=== PATIENT | female | born 1935 | race Hispanic/Latino ===

== ENCOUNTER → 2019-09-18 | Outpatient (CLI) | payer OTHER, MEDICARE ==
[~2019-09-18] MED LIST: AEC81 PO; ALEN70TA10 PO; AMLO5TAB9 PO; ATOR40TA69 PO; CHOL50009 PO; CITA-107 PO; GABA-531 PO; INSU100V12 SQ; LISI40TA4 PO; METF-444 PO; METF-446 PO; METO-391 PO; MONT10TA26 PO; MULT-503 PO; NITR0.4T50 SL; OMEP20CA12 PO
== END | disposition home or self-care (01) ==
LOC: RAH 13:10
PROVIDERS: ATTEND Internal Medicine
DX: G31.9 Degenerative disease of nervous system, unspecified (principal); G93.9 Disorder of brain, unspecified; I65.23 Occlusion and stenosis of bilateral carotid arteries
CPT/HCPCS: 70450; 93880

== ENCOUNTER → 2019-09-23 | Outpatient (CLI) | payer OTHER, MEDICARE | END | disposition home or self-care (01) | LOC: RAH 08:39 | PROVIDERS: ATTEND Internal Medicine | DX: I08.8 Other rheumatic multiple valve diseases (principal); R47.81 Slurred speech | CPT/HCPCS: 93306; 93356 ==

== ENCOUNTER 2019-12-19 22:49 | Observation (INO) | payer OTHER, MEDICARE ==
[~2019-12-19] VITALS: Ht 160 cm; Wt 77.7 kg
[~2019-12-19 22:49] MED LIST changes: -ALEN70TA10 PO; +ALEN70TA69 PO; +AMLO-257 PO; -AMLO5TAB9 PO
[2019-12-19 23:32] LABS: APPEARANCE,URINE Clear (CLEAR); BASOPHILS % (AUTO) 0.2 % (0.0-5.0); BILIRUBIN,URINE Negative (NEGATIVE); COLOR,URINE Yellow (YELLOW); GLUCOSE, URINE (UA) Negative (NEGATIVE); KETONES,URINE Negative (NEGATIVE); LEUKOCYTE ESTERASE ,URINE Small (NEGATIVE); MEAN CORPUSCULAR HEMOGLOBIN 26.8 pg (27.0-33.0); MEAN CORPUSCULAR HGB CONC 33.1 g/dL (32.0-36.0); MEAN CORPUSCULAR VOLUME 80.8 fL (79-99); MONOCYTES % (AUTO) 5.2 % (3.0-13.0); NEUTROPHILS % (AUTO) 76.1 % (40.0-77.0); NITRATE,URINE Negative (NEGATIVE); OCCULT BLOOD,URINE Negative (NEGATIVE); PLATELET COUNT (AUTO) 127 K/uL (130-400); PROTEIN,URINE POS 1+ mg/dL (NEGATIVE); RED BLOOD CELL COUNT(AUTO) 3.96 MIL/uL (4.00-5.50); RED CELL DISTRIBUTION WIDTH 14.6 % (11.0-15.5)
[2019-12-19 23:45] LABS: CREATININE 1.5 mg/dL (0.5-1.5); POTASSIUM 4.3 mmol/L (3.5-5.1)
[2019-12-19 23:50] LABS: ALBUMIN 3.3 g/dL (3.5-5.0); BILIRUBIN,TOTAL 0.4 mg/dL (0.2-1.0); TOTAL PROTEIN, SERUM 7.5 g/dL (6.0-8.3)
[2019-12-19 23:55] LABS: RAPID GROUP A STREP NEGATIVE (NEGATIVE)
[2019-12-19 23:57] LABS: CREATINE KINASE, TOTAL 42 U/L (21-232); MYOGLOBIN 73 ng/mL (10-92); TROPONIN I < 0.04 ng/mL (0.00-0.06)
[2019-12-20 00:11] LABS: BACTERIA,URINE Rare /HPF (None Seen); RBC,URINE None Seen /HPF (0-1)
[2019-12-20 00:12] LABS: MUCUS,URINE Rare LPF (None Seen); SQUAMOUS EPITHELIAL CELL,UR Few /HPF (0-2)
[2019-12-20 00:27] LABS: PARTIAL THROMBOPLASTIN TIME 33.8 SEC (26.3-35.5); PROTHROMBIN TIME 10.8 SEC (9.6-11.6)
[2019-12-20] MEDS ORDERED: LEVOFLOXACIN 750 MG/D5W 150 ML 150 ML ONE (01:20)
[2019-12-20] MEDS ORDERED: CEFTRIAXONE SODIUM 1 GM ONE (01:21)
[2019-12-20] MEDS ORDERED: SODIUM CHLORIDE 0.9% 1000ML 1,000 ML IV ONE (01:21)
[2019-12-20 01:43] LABS: ABG BASE EXCESS 0.4 mmol/L (-2.0-3.0); ABG HCO3 24.4 mmol/L (21.0-28.0); ABG OXYGEN SATURATION 95.2 % (95.0-99.0); ABG PCO2 37 mmHg (32-45)
[2019-12-20] MEDS ORDERED: IOHEXOL-350 75 ML VIAL IV ONE (01:51)
[2019-12-20] MEDS ORDERED: AZITHROMYCIN 500MG+NS 250ML 250 ML IV SCH (04:00)
[2019-12-20] MEDS ORDERED: ONDANSETRON HCL 4 MG/2 ML VIAL IVP PRN (04:00)
[2019-12-20 04:03] VITALS: BP 151/75
--- NOTE | 2019-12-20 04:23 | NUR ---
pts scheduled zithromax was not given as pt is allergic to it, will notify [facility].
[2019-12-20] MEDS: LACTATED RINGERS 1000ML 1,000 ML IV SCH ×2 (05:20→16:42)
[2019-12-20] MEDS ORDERED: AMLO-258 PO (05:30)
[2019-12-20] MEDS ORDERED: FLUT1BLS3 NASAL (05:30)
[2019-12-20] MEDS ORDERED: FLUT16H NASAL (05:30)
[2019-12-20] MEDS ORDERED: ASPI-1443 PO (05:30)
[2019-12-20] MEDS ORDERED: METO-408 PO (05:30)
[2019-12-20] MEDS ORDERED: ROSU10TA28 PO (05:30)
[2019-12-20] MEDS ORDERED: OMEP40CA13 PO (05:30)
[2019-12-20] MEDS ORDERED: GABA-533 PO (05:30)
[2019-12-20] MEDS ORDERED: SERT100T12 PO (05:30)
[2019-12-20] MEDS ORDERED: BUSP7.5T7 PO (05:30)
[2019-12-20 07:30] VITALS: BP 133/59
[2019-12-20] MEDS: ACETAMINOPHEN 325 MG TAB PO PRN ×2 (08:12→08:18)
[2019-12-20 11:30] VITALS: BP 126/62
[2019-12-20 15:30] VITALS: BP 141/67
[2019-12-20] MEDS ORDERED: HYDRALAZINE HCL 20 MG/ML VIAL IV PRN (15:30)
[2019-12-20] MEDS ORDERED: ONDANSETRON HCL 4 MG/2 ML VIAL IV PRN (15:30)
[2019-12-20] MEDS ORDERED: NITROGLYCERIN 0.4 MG SL TAB SL PRN (15:30)
[2019-12-20] MEDS ORDERED: ACETAMINOPHEN-CODEINE 300/30MG TAB PO PRN (15:30)
[2019-12-20] MEDS ORDERED: DiphenhydrAMINE HCL 50 MG/ML VIAL IV PRN (15:30)
[2019-12-20] MEDS ORDERED: POTASSIUM CHLORIDE 10% ELIXIR 20 MEQ/15 ML UDCUP PO PRN (15:30)
[2019-12-20] MEDS ORDERED: ACETAMINOPHEN 325 MG TAB PO PRN ×2 (15:30)
[2019-12-20] MEDS ORDERED: GUAIFENESIN-DM 200/20 MG 10 ML PO PRN (15:30)
[2019-12-20] MEDS ORDERED: DIPHENHYDRAMINE HCL 25 MG CAPSULE PO PRN (15:30)
[2019-12-20] MEDS ORDERED: MORPHINE SULFATE 2 MG/ML 1ML SYG IV PRN (15:30)
[2019-12-20] MEDS ORDERED: POTASSIUM CHLORIDE 10MEQ/100ML 100 ML IV PRN (15:30)
[2019-12-20] MEDS ORDERED: LIDOCAINE HCL-MPF 1% 2ML VIAL IV PRN (15:30)
[2019-12-20] MEDS ORDERED: POTASSIUM CHLORIDE 20 MEQ ERTAB PO PRN (15:30)
[2019-12-20] MEDS ORDERED: MAGNESIUM 2GM PREMIX 50ML 50 ML IV PRN (15:30)
[2019-12-20] MEDS ORDERED: MAG HYDROX/AL HYDROX/SIMETH ES 30 ML SUSP UDCUP PO PRN (15:30)
[2019-12-20] MEDS ORDERED: LACTULOSE 20 GM/30 ML UDCUP PO PRN (15:30)
[2019-12-20] MEDS: INSULIN HUMULIN R 100 UNIT/ML 3ML SQ SCH ×2 (16:30→21:59)
--- NOTE | 2019-12-20 18:46 | NUR ---
CARDIOLOGY CONSULT TRIED CALLING DR. OATES'S OFFICE AT THIS TIME, NO ANSWER, NO ANSWERING SERVICE. PATIENT'S HEART RATE REMAINS CONTROLLED IN ATRIAL FIBRILLATION, NO URGENT NEED FOR HEALTH AND SAFETY CONSULTANT TO SEE PATIENT. WILL PASS ON THAT CONSULT IS PENDING.
[2019-12-20 20:00] VITALS: BP 153/99
--- NOTE | 2019-12-20 20:00 | NUR ---
ASSESSMENT PT RESTING QUIETLY IN ROOM WATCHING TV. CURRENTLY DENIES ANY PAIN OR DISCOMFORT. AAOX4 PLEASANT, COOPERATIVE AND FOLLOWS COMMANDS. DENIES ANY CHEST PAIN OR S.O.B. ASSESSMENT COMPLETED, SEE FLOW SHEET.
[2019-12-20] MEDS: ZOSYN 3.375GM+NS 50ML 50 ML IV SCH (21:41)
[2019-12-20] MEDS: ZOLPIDEM TARTRATE 5 MG TAB PO PRN (21:50)
[2019-12-20] MEDS ORDERED: VANCOMYCIN PROTOCOL PER PHARMACY IV SCH (23:45)
[2019-12-21] VITALS (7 sets, daily range): BP systolic 108–151; BP diastolic 42–77
[2019-12-21] MEDS ORDERED: VANCOMYCIN 1GM+NS 250ML 250 ML IV SCH ×2 (01:00→14:00)
[2019-12-21 05:51] LABS: BASOPHILS % (AUTO) 0.2 % (0.0-5.0); EOSINOPHILS % (AUTO) 0.2 % (0.0-8.0); HEMATOCRIT 28.9 % (36-48); LYMPHOCYTES % (AUTO) 28.7 % (21.0-51.0); MEAN CORPUSCULAR HEMOGLOBIN 26.6 pg (27.0-33.0); MEAN CORPUSCULAR HGB CONC 32.5 g/dL (32.0-36.0); MEAN CORPUSCULAR VOLUME 81.6 fL (79-99); MONOCYTES % (AUTO) 11.2 % (3.0-13.0); PLATELET COUNT (AUTO) 127 K/uL (130-400); RED BLOOD CELL COUNT(AUTO) 3.54 MIL/uL (4.00-5.50); RED CELL DISTRIBUTION WIDTH 14.7 % (11.0-15.5)
[2019-12-21 05:59] LABS: ALBUMIN 2.7 g/dL (3.5-5.0); BILIRUBIN,TOTAL 0.3 mg/dL (0.2-1.0); CREATININE 1.2 mg/dL (0.5-1.5); MAGNESIUM 2.1 mg/dL (1.80-2.40); POTASSIUM 5.1 mmol/L (3.5-5.1); TOTAL PROTEIN, SERUM 6.6 g/dL (6.0-8.3)
[2019-12-21] MEDS: INSULIN HUMULIN R 100 UNIT/ML 3ML SQ SCH ×4 (06:07→21:41)
[2019-12-21 06:15] LABS: B-TYPE NATRIURETIC PEPTIDE 163 pg/mL (0-100)
[2019-12-21] MEDS ORDERED: CEFTRIAXONE SODIUM 1 GM IVP SCH (09:00)
[2019-12-21] MEDS: ZOSYN 3.375GM+NS 50ML 50 ML IV SCH (09:39)
[2019-12-21] MEDS: ENOXAPARIN SODIUM 30 MG/0.3 ML SQ SCH (09:39)
[2019-12-21] MEDS ORDERED: ALBU8.5H8 IH (11:10)
[2019-12-21] MEDS ORDERED: LIRA0.6P2 SQ (11:19)
[2019-12-21] MEDS: AMLODIPINE BESYLATE 5 MG TAB PO SCH (11:41)
[2019-12-21] MEDS: LISINOPRIL 40 MG TABLET PO SCH (11:41)
[2019-12-21] MEDS: METOPROLOL SUCCINATE 50 MG TAB.SR.24H PO SCH (12:44)
--- NOTE | 2019-12-21 14:42 | NUR ---
TRANSFERRED TO RM [id number]. VS STABLE SBAR REPORT TO JOSE ROYAL
--- NOTE | 2019-12-21 15:53 | NUR ---
INITIAL SW met with patient. Patient lives alone. No Home health but does have [facility] with [facility] hours a week. DME: nebulizer, Bipap, rollator, glucometer (uses insulin). Patient needs help with ADL's but drives. PCP is Dr. Marissa Newman. [facility]acy [facility]. DCP is home. Addendum: 12/21/19 at 1555 by CALLUM VILLA SS Amended: Links added.
[2019-12-21] MEDS ORDERED: SULFAMETHOX-TMP DS 800/160 TAB PO SCH (21:00)
[2019-12-22] MEDS: ZOLPIDEM TARTRATE 5 MG TAB PO PRN (00:10)
[2019-12-22 01:30] VITALS: BP 154/78
[2019-12-22 04:43] LABS: CREATININE 1.1 mg/dL (0.5-1.5); MAGNESIUM 1.5 mg/dL (1.80-2.40)
[2019-12-22 04:45] LABS: BASOPHILS % (AUTO) 0.2 % (0.0-5.0); EOSINOPHILS % (AUTO) 0.6 % (0.0-8.0); HEMATOCRIT 28.1 % (36-48); LYMPHOCYTES % (AUTO) 32.5 % (21.0-51.0); MEAN CORPUSCULAR HEMOGLOBIN 27.2 pg (27.0-33.0); MEAN CORPUSCULAR HGB CONC 33.5 g/dL (32.0-36.0); MEAN CORPUSCULAR VOLUME 81.2 fL (79-99); MONOCYTES % (AUTO) 13.5 % (3.0-13.0); NEUTROPHILS % (AUTO) 52.4 % (40.0-77.0); PLATELET COUNT (AUTO) 173 K/uL (130-400); RED BLOOD CELL COUNT(AUTO) 3.46 MIL/uL (4.00-5.50); RED CELL DISTRIBUTION WIDTH 14.9 % (11.0-15.5); WHITE BLOOD COUNT (AUTO) 5.3 K/uL (4.8-10.8)
[2019-12-22 05:00] VITALS: BP 135/62
[2019-12-22] MEDS: INSULIN HUMULIN R 100 UNIT/ML 3ML SQ SCH (05:47)
[2019-12-22] MEDS: METOPROLOL SUCCINATE 50 MG TAB.SR.24H PO SCH (08:22)
[2019-12-22] MEDS: AMLODIPINE BESYLATE 5 MG TAB PO SCH (08:22)
[2019-12-22] MEDS: ENOXAPARIN SODIUM 30 MG/0.3 ML SQ SCH (08:23)
[2019-12-22] MEDS: LISINOPRIL 40 MG TABLET PO SCH (08:23)
[2019-12-22] MEDS ORDERED: MAGNESIUM 2GM PREMIX 50ML 50 ML IV SCH (08:30)
[2019-12-22 08:54] VITALS: BP 150/76
[2019-12-22] MEDS ORDERED: Sulfamethox-Tmp Ds 800/160 Tab PO (10:01)
[2019-12-22 12:00] VITALS: BP 139/66
--- NOTE | 2019-12-22 12:45 | NUR ---
note DISCHARGED HOME NOW. VERBALIZED UNDERSTANDING OF WHAT WAS INSTRUCTED. SPOKE TO HER GRANDDAUGHTER AND EXPLAINED DC ORDERS ALSO VERBALIZED UNDERSTANDING. RX FOR BACTRIM DS 1 PO BID FOR 7 DAYS CALLED IN TO [facility] IN [place] PER ELISE HRERMANN'S ORDERS.
== END 2019-12-22 13:00 | disposition home or self-care (01) ==
LOC: EDH 22:49 → EDHIP 12-20 01:15 → 2DH 12-20 02:40 → 4CH 12-21 14:47
PROVIDERS: ADMIT Internal Medicine Critical Care Medicine; ATTEND Internal Medicine Critical Care Medicine
DX: N39.0 Urinary tract infection, site not specified (principal); R19.7 Diarrhea, unspecified; E11.9 Type 2 diabetes mellitus without complications; L03.311 Cellulitis of abdominal wall; I10 Essential (primary) hypertension; J42 Unspecified chronic bronchitis; Z20.828 Contact with and (suspected) exposure to other viral communicable diseases; Z79.4 Long term (current) use of insulin; Z79.82 Long term (current) use of aspirin; Z88.5 Allergy status to narcotic agent; Z88.1 Allergy status to other antibiotic agents; Z88.6 Allergy status to analgesic agent; Z88.8 Allergy status to other drugs, medicaments and biological substances
CPT/HCPCS: 36415 ×3; 36600; 71045 ×2; 71275; 74176; 80048; 80053 ×2; 81001; 82550; 82803; 82948 ×8; 83605; 83735 ×2; 83874; 83880; 84145; 84484; 85025 ×3; 85378; 85610; 85730; 87040; 87088 ×2; 87486; 87581; 87633 ×2; 87635 ×2; 87798; 87804 ×2; 87880; 96361 ×2; 96365; 96366 ×3; 96367 ×2; 96372 ×3; 96375 ×2; 99285; G0378 ×24; J0696 ×2; J1650 ×2; J1815 ×2; J1956; J2405; J2543 ×3; J3370 ×2; J3475; J7030; J7120 ×2; Q9967; 93005

== ENCOUNTER 2020-08-28 12:04 | Emergency (ER) | payer OTHER, MEDICARE ==
[~2020-08-28 12:04] MED LIST changes: -AEC81 PO; +ALBU8.5H8 IH; -ALEN70TA69 PO; +ALEN70TA80 PO; -AMLO-257 PO; +AMLO-258 PO; +ASPI-1443 PO; -ATOR40TA69 PO; +BUSP7.5T7 PO; -CHOL50009 PO; -CITA-107 PO; +FLUT16H NASAL; +FLUT1BLS3 NASAL; -GABA-531 PO; +LIRA0.6P2 SQ; -LISI40TA4 PO; +LISI40TA9 PO; -METF-444 PO; -METF-446 PO; -METO-391 PO; +METO-408 PO; -MONT10TA26 PO; -MULT-503 PO; -OMEP20CA12 PO; +OMEP40CA13 PO; +ROSU10TA28 PO; +SERT-440 PO; +Sulfamethox-Tmp Ds 800/160 Tab PO
[2020-08-28] MEDS ORDERED: ONDANSETRON HCL 4 MG/2 ML VIAL ONE (13:26)
[2020-08-28] MEDS ORDERED: MORPHINE SULFATE 2 MG/ML 1ML SYG ONE (13:26)
[2020-08-28] MEDS ORDERED: KETOROLAC TROMETHAMINE 15MG/ML ONE (13:26)
== END 2020-08-28 14:55 | disposition home or self-care (01) ==
LOC: EDH 12:04
DX: S42.292A Other displaced fracture of upper end of left humerus, initial encounter for closed fracture (principal); S00.83XA Contusion of other part of head, initial encounter; I10 Essential (primary) hypertension; E11.9 Type 2 diabetes mellitus without complications; Z88.1 Allergy status to other antibiotic agents; Z88.8 Allergy status to other drugs, medicaments and biological substances; Z88.6 Allergy status to analgesic agent; Z79.899 Other long term (current) drug therapy; W01.0XXA Fall on same level from slipping, tripping and stumbling without subsequent striking against object, initial encounter; Y93.89 Activity, other specified; Y92.89 Other specified places as the place of occurrence of the external cause; Y99.8 Other external cause status
CPT/HCPCS: 29105; 70450; 70486; 72125; 73030; 73060; 93005; 96374; 96375 ×2; 99285; J1885; J2405

== ENCOUNTER 2020-10-12 03:57 | Inpatient (IN) | payer OTHER, MEDICARE ==
[~2020-10-12] VITALS: Ht 160 cm; Wt 79.7 kg
[~2020-10-12 03:57] MED LIST changes: -OMEP40CA13 PO; +OMEP40CA21 PO
[2020-10-12] MEDS ORDERED: HYDROCODONE/ACETAMINOPHEN 10/325 MG TAB ONE (04:26)
[2020-10-12 07:03] LABS: BASOPHILS % (AUTO) 0.4 % (0.0-5.0); EOSINOPHILS % (AUTO) 1.8 % (0.0-8.0); HEMATOCRIT 34.3 % (36-48); LYMPHOCYTES % (AUTO) 20.7 % (21.0-51.0); MEAN CORPUSCULAR HEMOGLOBIN 27.4 pg (27.0-33.0); MEAN CORPUSCULAR HGB CONC 33.2 g/dL (32.0-36.0); MEAN CORPUSCULAR VOLUME 82.5 fL (79-99); NEUTROPHILS % (AUTO) 70.7 % (40.0-77.0); PLATELET COUNT (AUTO) 168 K/uL (130-400); RED BLOOD CELL COUNT(AUTO) 4.16 MIL/uL (4.00-5.50); RED CELL DISTRIBUTION WIDTH 13.8 % (11.0-15.5); WHITE BLOOD COUNT (AUTO) 6.7 K/uL (4.8-10.8)
[2020-10-12 07:20] LABS: ALBUMIN 4.1 g/dL (3.5-5.0); BILIRUBIN,TOTAL 0.3 mg/dL (0.2-1.0); CREATININE 1.1 mg/dL (0.5-1.5); POTASSIUM 4.5 mmol/L (3.5-5.1); TOTAL PROTEIN, SERUM 7.7 g/dL (6.0-8.3)
[2020-10-12 07:39] LABS: INR 1.01 (0.85-1.15)
[2020-10-12 07:41] LABS: PARTIAL THROMBOPLASTIN TIME 23.5 SEC (26.3-35.5)
[2020-10-12] MEDS ORDERED: MORPHINE 2 MG SYG IVP PRN (08:00)
[2020-10-12] MEDS ORDERED: LACTATED RINGERS 1000ML 1,000 ML IV SCH (08:00)
[2020-10-12] MEDS: PANTOPRAZOLE 40 MG TAB DR PO SCH (08:21)
[2020-10-12 08:34] LABS: HEMOGLOBIN A1C 7.4 % (4.0-6.0)
[2020-10-12 08:43] LABS: BILIRUBIN,DIRECT 0.1 mg/dL (0.0-0.3); MAGNESIUM 1.4 mg/dL (1.80-2.40)
[2020-10-12] MEDS: AMLODIPINE 5 MG TAB PO SCH (09:00)
[2020-10-12] MEDS: METOPROLOL SUCCINATE 50 MG TAB.SR.24H PO SCH (09:00)
[2020-10-12 09:12] LABS: APPEARANCE,URINE Clear (CLEAR); BILIRUBIN,URINE Negative (NEGATIVE); COLOR,URINE Yellow (YELLOW); GLUCOSE, URINE (UA) Negative (NEGATIVE); KETONES,URINE Negative (NEGATIVE); LEUKOCYTE ESTERASE ,URINE Trace (NEGATIVE); NITRATE,URINE Negative (NEGATIVE); OCCULT BLOOD,URINE Negative (NEGATIVE); PROTEIN,URINE Trace mg/dL (NEGATIVE); UROBILINOGEN,URINE 0.2 mg/dL (0.2-1.0)
[2020-10-12 09:13] LABS: BACTERIA,URINE Rare /HPF (None Seen); RBC,URINE 0-1 /HPF (0-1); SQUAMOUS EPITHELIAL CELL,UR Rare /HPF (0-2); WBC,URINE 0-1 /HPF (0-1)
[2020-10-12] MEDS ORDERED: AMLODIPINE 5 MG TAB ONE (09:39)
[2020-10-12] MEDS ORDERED: PANTOPRAZOLE 40 MG TAB DR ONE (09:39)
[2020-10-12] MEDS ORDERED: MAGNESIUM 2GM PREMIX 50ML 50 ML IV ONE (09:39)
[2020-10-12] MEDS ORDERED: LACTATED RINGERS 1000ML 1,000 ML IV ONE (09:40)
[2020-10-12] MEDS ORDERED: METOPROLOL SUCCINATE 50 MG TAB.SR.24H PO ONE (09:40)
[2020-10-12] MEDS ORDERED: MORPHINE 2 MG SYG ONE (09:40)
[2020-10-12 12:07] VITALS: BP 162/81
[2020-10-12] MEDS: MAGNESIUM 2GM PREMIX 50ML 50 ML IV SCH (15:04)
[2020-10-12 16:55] VITALS: BP 120/72
[2020-10-12] MEDS ORDERED: LISINOPRIL 20 MG TABLET PO SCH (21:00)
[2020-10-12] MEDS: HYDROCODONE/ACETAMINOPHEN 5/325 MG TAB PO PRN (22:41)
[2020-10-12] MEDS: INSULIN HUMULIN R 100 UNIT/ML 3ML SQ SCH (22:51)
[2020-10-12 23:34] VITALS: BP 152/78
[2020-10-13] VITALS (26 sets, daily range): BP systolic 131–186; BP diastolic 47–85
[2020-10-13] MEDS: INSULIN HUMULIN R 100 UNIT/ML 3ML SQ SCH ×4 (02:00→20:07)
[2020-10-13] MEDS ORDERED: BUSP10TA3 PO (04:38)
[2020-10-13] MEDS ORDERED: MONT-39 PO (04:39)
[2020-10-13] MEDS ORDERED: LORA10TA7 PO (04:43)
[2020-10-13] MEDS ORDERED: NAPR-1192 PO (04:47)
[2020-10-13] MEDS ORDERED: TRAZ-253 PO (04:47)
[2020-10-13 06:13] LABS: BASOPHILS % (AUTO) 0.3 % (0.0-5.0); EOSINOPHILS % (AUTO) 2.2 % (0.0-8.0); LYMPHOCYTES % (AUTO) 24.6 % (21.0-51.0); MEAN CORPUSCULAR HEMOGLOBIN 27.5 pg (27.0-33.0); MEAN CORPUSCULAR HGB CONC 33.2 g/dL (32.0-36.0); MEAN CORPUSCULAR VOLUME 82.9 fL (79-99); MONOCYTES % (AUTO) 6.9 % (3.0-13.0); NEUTROPHILS % (AUTO) 65.5 % (40.0-77.0); PLATELET COUNT (AUTO) 162 K/uL (130-400); RED BLOOD CELL COUNT(AUTO) 3.74 MIL/uL (4.00-5.50); RED CELL DISTRIBUTION WIDTH 13.7 % (11.0-15.5); WHITE BLOOD COUNT (AUTO) 5.9 K/uL (4.8-10.8)
[2020-10-13 06:15] LABS: MAGNESIUM 1.6 mg/dL (1.80-2.40); POTASSIUM 4.3 mmol/L (3.5-5.1)
[2020-10-13] MEDS: PANTOPRAZOLE 40 MG TAB DR PO SCH (07:30)
[2020-10-13] MEDS: METOPROLOL SUCCINATE 50 MG TAB.SR.24H PO SCH (08:36)
[2020-10-13] MEDS: MAGNESIUM 2GM PREMIX 50ML 50 ML IV SCH (08:36)
[2020-10-13] MEDS: AMLODIPINE 5 MG TAB PO SCH (09:00)
[2020-10-13] MEDS ORDERED: 0.9%NACL 1000ML 1,000 ML IV ONE (12:05)
[2020-10-13] MEDS ORDERED: SUCCINYLCHOLINE CHLORIDE 20 MG/ML 10 ML VIAL ONE (13:18)
[2020-10-13] MEDS ORDERED: LIDOCAINE PF 100MG/5ML (2%) SYRINGE 5ML ONE (13:18)
[2020-10-13] MEDS ORDERED: PROPOFOL 10 MG/ML 20ML VIAL IV ONE (13:18)
[2020-10-13] MEDS ORDERED: MIDAZOLAM HCL 1 MG/ML 2ML VIAL ONE (13:19)
[2020-10-13] MEDS ORDERED: ONDANSETRON 4MG INJ ONE ×2 (13:19→21:53)
[2020-10-13] MEDS ORDERED: GLYCOPYRROLATE 1 MG/5 ML SYRINGE ONE (13:19)
[2020-10-13] MEDS ORDERED: ROCURONIUM 10MG/1ML SYR 10 MG/ML ML ONE (13:19)
[2020-10-13] MEDS ORDERED: NEOSTIGMINE 5MG/5ML SYR IV ONE (13:19)
[2020-10-13] MEDS ORDERED: DEXAMETHASONE SOD PHOSPHATE 10MG/ML 1ML VIAL ONE (13:19)
[2020-10-13] MEDS ORDERED: FENTANYL CITRATE PF 50 MCG/1 ML 2ML VIAL ONE (13:20)
[2020-10-13] MEDS ORDERED: ROPIVACAINE 0.5% 5MG/ML 30ML IJ ONE ×2 (13:24→18:23)
[2020-10-13] MEDS ORDERED: ALBUMIN (HUMAN) 5% 250 ML IV ONE (13:24)
[2020-10-13] MEDS ORDERED: VANCOMYCIN 1G/250ML KIT 250 ML IV ONE (15:51)
[2020-10-13] MEDS ORDERED: EPHEDRINE SULFATE 50 MG/ML AMPULE ONE ×2 (16:25→17:01)
[2020-10-13] MEDS ORDERED: HYDRALAZINE 20MG/ML VIAL ONE (19:14)
[2020-10-13] MEDS ORDERED: NITROGLYCERIN 0.4 MG SL TAB SL PRN (21:30)
[2020-10-13] MEDS ORDERED: ALBUTEROL INHALER 90MCG/INH IH PRN (21:30)
[2020-10-13] MEDS ORDERED: NAPROXEN 250 MG TAB PO PRN (21:30)
[2020-10-13] MEDS: LACTATED RINGERS 1000ML 1,000 ML IV SCH (21:45)
[2020-10-13] MEDS ORDERED: TRAZODONE HCL 50 MG TAB ONE (21:46)
[2020-10-13] MEDS ORDERED: BUSPIRONE HCL 5 MG TABLET PO ONE (21:46)
[2020-10-13] MEDS ORDERED: MONTELUKAST SODIUM 10 MG TAB ONE (21:46)
[2020-10-13] MEDS ORDERED: LABETALOL 20MG VIAL IV ONE (21:53)
[2020-10-13] MEDS ORDERED: ONDANSETRON 4MG INJ IVP PRN (22:00)
[2020-10-13] MEDS ORDERED: LABETALOL 20MG SYG IV PRN (22:00)
[2020-10-14] VITALS: BP_SYST 131; BP_SYST 156; BP_DIAS 63; BP_DIAS 65
[2020-10-14] MEDS: HYDROCODONE/ACETAMINOPHEN 5/325 MG TAB PO PRN ×2 (00:13→08:41)
[2020-10-14] MEDS: INSULIN HUMULIN R 100 UNIT/ML 3ML SQ SCH ×4 (02:11→20:00)
[2020-10-14 04:00] VITALS: BP 147/61
[2020-10-14 05:13] LABS: BASOPHILS % (AUTO) 0.2 % (0.0-5.0); EOSINOPHILS % (AUTO) 0.1 % (0.0-8.0); HEMATOCRIT 28.6 % (36-48); LYMPHOCYTES % (AUTO) 10.6 % (21.0-51.0); MEAN CORPUSCULAR HEMOGLOBIN 27.8 pg (27.0-33.0); MEAN CORPUSCULAR HGB CONC 33.2 g/dL (32.0-36.0); MEAN CORPUSCULAR VOLUME 83.6 fL (79-99); MONOCYTES % (AUTO) 6.5 % (3.0-13.0); NEUTROPHILS % (AUTO) 82.3 % (40.0-77.0); PLATELET COUNT (AUTO) 154 K/uL (130-400); RED BLOOD CELL COUNT(AUTO) 3.42 MIL/uL (4.00-5.50); RED CELL DISTRIBUTION WIDTH 13.8 % (11.0-15.5); WHITE BLOOD COUNT (AUTO) 8.9 K/uL (4.8-10.8)
[2020-10-14 05:19] LABS: CREATININE 1.1 mg/dL (0.5-1.5); MAGNESIUM 1.8 mg/dL (1.80-2.40); POTASSIUM 4.3 mmol/L (3.5-5.1)
[2020-10-14] MEDS: PANTOPRAZOLE 40 MG TAB DR PO SCH (05:41)
[2020-10-14] MEDS: MAGNESIUM 2GM PREMIX 50ML 50 ML IV SCH (05:42)
[2020-10-14 08:27] VITALS: BP 111/52
[2020-10-14] MEDS: ASPIRIN 81 MG EC TAB PO SCH (08:41)
[2020-10-14] MEDS: BUSPIRONE HCL 5 MG TABLET PO SCH ×2 (08:42→20:46)
[2020-10-14] MEDS: SERTRALINE HCL 50 MG TABLET PO SCH (08:42)
[2020-10-14] MEDS: METOPROLOL SUCCINATE 50 MG TAB.SR.24H PO SCH (08:43)
[2020-10-14] MEDS: VICTOZA 0.6 MG SQ SCH (08:43)
[2020-10-14] MEDS: FLUTICASONE PROPIONATE 50MCG/SPRAY 16 GM BOTTLE NS SCH ×2 (08:44→20:47)
[2020-10-14] MEDS: **HM** TRELEGY ELLIPTA NASAL SCH ×2 (08:44→20:47)
[2020-10-14] MEDS: INSULIN GLARGINE 100 UNITS/ML 10 ML VIAL SQ SCH ×2 (08:45→20:48)
[2020-10-14] MEDS ORDERED: NON-FORMULARY MEDICATION 1 EACH (Omeprazole 40 MG) PO SCH (09:00)
[2020-10-14] MEDS ORDERED: NON-FORMULARY MEDICATION 1 EACH (Amlodipine Besylate 10 MG) PO SCH (09:00)
[2020-10-14] MEDS: LISINOPRIL 40 MG TABLET PO SCH (09:00)
[2020-10-14] MEDS: AMLODIPINE 5 MG TAB PO SCH (09:00)
[2020-10-14] MEDS ORDERED: NON-FORMULARY MEDICATION 1 EACH (Metoprolol Succinate 25 MG) PO SCH (09:00)
[2020-10-14] MEDS: LACTATED RINGERS 1000ML 1,000 ML IV SCH (13:09)
[2020-10-14 13:21] VITALS: BP 126/71
[2020-10-14] MEDS: KETOROLAC 15MG/ML VIAL (15MG/ML) IV PRN ×2 (13:27→20:46)
[2020-10-14 17:07] VITALS: BP_SYST 122; BP_SYST 130; BP_DIAS 36; BP_DIAS 76
[2020-10-14] MEDS ORDERED: MONTELUKAST SODIUM 10 MG TAB ONE (18:49)
[2020-10-14] MEDS ORDERED: ATORVASTATIN 20 MG TABLET ONE (18:49)
[2020-10-14 20:00] VITALS: BP 155/56
[2020-10-14] MEDS ORDERED: MONTELUKAST SODIUM 10 MG TAB PO SCH (21:00)
[2020-10-14] MEDS ORDERED: ATORVASTATIN 20 MG TABLET PO SCH (21:00)
[2020-10-15 00:43] VITALS: BP 155/57
[2020-10-15] MEDS: INSULIN HUMULIN R 100 UNIT/ML 3ML SQ SCH ×3 (02:00→14:00)
[2020-10-15] MEDS: HYDROCODONE/ACETAMINOPHEN 5/325 MG TAB PO PRN (02:26)
[2020-10-15 04:22] VITALS: BP 153/63
[2020-10-15] MEDS: KETOROLAC 15MG/ML VIAL (15MG/ML) IV PRN ×2 (04:45→10:39)
[2020-10-15 05:12] LABS: BASOPHILS % (AUTO) 0.2 % (0.0-5.0); EOSINOPHILS % (AUTO) 2.3 % (0.0-8.0); HEMATOCRIT 32.2 % (36-48); LYMPHOCYTES % (AUTO) 12.3 % (21.0-51.0); MEAN CORPUSCULAR HEMOGLOBIN 27.2 pg (27.0-33.0); MEAN CORPUSCULAR HGB CONC 32.3 g/dL (32.0-36.0); MEAN CORPUSCULAR VOLUME 84.1 fL (79-99); MONOCYTES % (AUTO) 8.1 % (3.0-13.0); NEUTROPHILS % (AUTO) 76.7 % (40.0-77.0); PLATELET COUNT (AUTO) 173 K/uL (130-400); RED BLOOD CELL COUNT(AUTO) 3.83 MIL/uL (4.00-5.50); RED CELL DISTRIBUTION WIDTH 13.8 % (11.0-15.5); WHITE BLOOD COUNT (AUTO) 9.4 K/uL (4.8-10.8)
[2020-10-15 05:28] LABS: CREATININE 1.1 mg/dL (0.5-1.5); MAGNESIUM 1.9 mg/dL (1.80-2.40); POTASSIUM 3.9 mmol/L (3.5-5.1)
[2020-10-15] MEDS: PANTOPRAZOLE 40 MG TAB DR PO SCH (05:59)
[2020-10-15 07:21] VITALS: BP 151/61
[2020-10-15] MEDS ORDERED: LUBIPROSTONE 24 MCG CAP PO SCH (08:00)
[2020-10-15] MEDS: **HM** TRELEGY ELLIPTA NASAL SCH (09:00)
[2020-10-15] MEDS: VICTOZA 0.6 MG SQ SCH (09:00)
[2020-10-15] MEDS ORDERED: METOPROLOL SUCCINATE 50 MG TAB.SR.24H PO SCH (09:00)
[2020-10-15] MEDS: ASPIRIN 81 MG EC TAB PO SCH (10:42)
[2020-10-15] MEDS: SERTRALINE HCL 50 MG TABLET PO SCH (10:42)
[2020-10-15] MEDS: AMLODIPINE 5 MG TAB PO SCH (10:43)
[2020-10-15] MEDS: BUSPIRONE HCL 5 MG TABLET PO SCH (10:43)
[2020-10-15] MEDS: LISINOPRIL 40 MG TABLET PO SCH (10:43)
[2020-10-15 11:19] VITALS: BP 168/76
[2020-10-15] MEDS: INSULIN GLARGINE 100 UNITS/ML 10 ML VIAL SQ SCH (12:07)
[2020-10-15] MEDS ORDERED: TRAZ-185 PO (12:37)
[2020-10-15 16:00] VITALS: BP 148/57
[2020-10-15] MEDS ORDERED: TRAZODONE HCL 50 MG TAB PO SCH (21:00)
[2020-10-20] MEDS ORDERED: ALENDRONATE SODIUM 35 MG TAB PO SCH (09:00)
== END 2020-10-15 17:20 | DRG 494 ==
LOC: EDH 03:57 → EDHIP 08:00 → OBSVTOIN 08:00 → 3BH 12:01
PROVIDERS: ADMIT Internal Medicine; ATTEND Internal Medicine
PROC: 0PSG04Z Reposition Left Humeral Shaft with Internal Fixation Device, Open Approach (ICD-10-PCS; principal; 2020-10-13 16:00)
PROC: 0LB20ZZ Excision of Left Shoulder Tendon, Open Approach (ICD-10-PCS; 2020-10-13 16:00)
DX: S42.202A Unspecified fracture of upper end of left humerus, initial encounter for closed fracture (principal); F41.9 Anxiety disorder, unspecified; J45.909 Unspecified asthma, uncomplicated; E11.9 Type 2 diabetes mellitus without complications; M19.90 Unspecified osteoarthritis, unspecified site; Z20.822 Contact with and (suspected) exposure to COVID-19; E78.5 Hyperlipidemia, unspecified; F32.9 Major depressive disorder, single episode, unspecified; G47.33 Obstructive sleep apnea (adult) (pediatric); W18.30XA Fall on same level, unspecified, initial encounter; Y93.89 Activity, other specified; K21.9 Gastro-esophageal reflux disease without esophagitis; Y92.89 Other specified places as the place of occurrence of the external cause; Y99.8 Other external cause status; Z90.710 Acquired absence of both cervix and uterus; Z88.0 Allergy status to penicillin; Z88.5 Allergy status to narcotic agent; Z88.8 Allergy status to other drugs, medicaments and biological substances; Z80.3 Family history of malignant neoplasm of breast; Z83.3 Family history of diabetes mellitus; Z82.49 Family history of ischemic heart disease and other diseases of the circulatory system; I51.7 Cardiomegaly; E66.9 Obesity, unspecified; Z68.31 Body mass index [BMI] 31.0-31.9, adult; I10 Essential (primary) hypertension; S46.012A Strain of muscle(s) and tendon(s) of the rotator cuff of left shoulder, initial encounter
CPT/HCPCS: 36415; 71045; 73030; 73060; 73090; 73200; 80048; 80053; 81001; 82248; 82948; 83036; 83735; 83880; 84484; 85025; 85610; 85730; 87426; 93005; 97039; A4606; G0378; J0330; J0360; J1100; J1815; J1885; J2001; J2250; J2405; J2704; J2710; J2795; J3010; J3370; J3475; J3490; J7030; J7120; P9045; U0003

== ENCOUNTER 2021-05-16 17:11 | Inpatient (IN) | payer OTHER, MEDICARE ==
[~2021-05-16] VITALS: Ht 160 cm; Wt 79.3 kg
[~2021-05-16 17:11] MED LIST changes: +BUSP10TA3 PO; -BUSP7.5T7 PO; +LORA10TA7 PO; +MONT-39 PO; +NAPR-1192 PO; -Sulfamethox-Tmp Ds 800/160 Tab PO; +TRAZ-185 PO
[2021-05-16] MEDS ORDERED: GLUCAGON 1MG KIT 1 MG ML IM PRN (18:30)
[2021-05-16] MEDS ORDERED: POTASSIUM CHLORIDE 10% ELIXIR 20 MEQ/15 ML UDCUP PO PRN (18:30)
[2021-05-16] MEDS ORDERED: KCL 20 MEQ ERTAB PO PRN (18:30)
[2021-05-16] MEDS ORDERED: ALBUTEROL 0.083% 2.5 MG/3 ML INH IH PRN (18:30)
[2021-05-16] MEDS ORDERED: DEXTROSE 50%-WATER 50 ML DISP.SYRIN IV PRN (18:30)
[2021-05-16] MEDS ORDERED: LIDOCAINE HCL-MPF 1% 2ML VIAL IJ PRN (18:30)
[2021-05-16] MEDS ORDERED: 0.9%NACL 10ML VIAL IVP PRN (18:30)
[2021-05-16] MEDS ORDERED: POTASSIUM CHLORIDE 20MEQ/100ML 100 ML IV PRN (18:30)
[2021-05-16] MEDS: NITROGLYCERIN 1GM OINT 1 INCH/1GM TD SCH (18:31)
[2021-05-16] MEDS: FUROSEMIDE 40MG VIAL IVP SCH (18:31)
[2021-05-16 18:38] LABS: BASOPHILS % (AUTO) 0.5 % (0.0-5.0); EOSINOPHILS % (AUTO) 1.7 % (0.0-8.0); LYMPHOCYTES % (AUTO) 23.7 % (21.0-51.0); MEAN CORPUSCULAR HEMOGLOBIN 29.3 pg (27.0-33.0); MEAN CORPUSCULAR HGB CONC 34.4 g/dL (32.0-36.0); MEAN CORPUSCULAR VOLUME 85.2 fL (79-99); MONOCYTES % (AUTO) 7.3 % (3.0-13.0); NEUTROPHILS % (AUTO) 66.1 % (40.0-77.0); PLATELET COUNT (AUTO) 185 K/uL (130-400); RED BLOOD CELL COUNT(AUTO) 3.99 MIL/uL (4.00-5.50); RED CELL DISTRIBUTION WIDTH 13.3 % (11.0-15.5)
[2021-05-16 18:45] LABS: CREATININE 1.3 mg/dL (0.5-1.5)
[2021-05-16 18:50] LABS: BILIRUBIN,TOTAL 0.4 mg/dL (0.2-1.0); TOTAL PROTEIN, SERUM 7.9 g/dL (6.0-8.3)
[2021-05-16 18:56] LABS: B-TYPE NATRIURETIC PEPTIDE 54 pg/mL (0-100)
[2021-05-16] MEDS ORDERED: PHARMACY COMMUNICATION MISC SCH (19:30)
[2021-05-16] MEDS ORDERED: AMIODARONE 150MG VIAL 150 MG in DEXTROSE 5%-WATER 100 ML IV SCH (20:00)
[2021-05-16] MEDS ORDERED: AMIODARONE 900MG VIAL 360 MG in DEXTROSE 5%-WATER 200 ML IV SCH (20:00)
[2021-05-16] MEDS: HYDRALAZINE 25MG TABLET PO SCH (20:34)
[2021-05-16] MEDS: INSULIN R PO SS1 SQ SCH (20:45)
[2021-05-16 23:13] LABS: ABG BASE EXCESS 2.3 mmol/L (-2.0-3.0); ABG HCO3 23.9 mmol/L (21.0-28.0); ABG OXYGEN SATURATION 97.5 % (95.0-99.0); ABG PCO2 28 mmHg (32-45)
[2021-05-17] MEDS ORDERED: AMIODARONE 900MG VIAL 450 MG in DEXTROSE 5%-WATER 250 ML IV SCH (02:00)
[2021-05-17] MEDS: NITROGLYCERIN 1GM OINT 1 INCH/1GM TD SCH ×3 (02:00→17:56)
[2021-05-17] MEDS: IPRATROPIUM 0.5 MG/2.5 ML INH IH SCH ×5 (02:36→23:28)
[2021-05-17] MEDS ORDERED: AEC81 PO (03:10)
[2021-05-17] MEDS ORDERED: ATOR40TA69 PO (03:10)
[2021-05-17] MEDS ORDERED: FURO20TA4 PO (03:21)
[2021-05-17] MEDS ORDERED: ALPRAZOLAM 0.25 MG TABLET PO ONE (04:00)
[2021-05-17 06:29] LABS: CREATININE 1.2 mg/dL (0.5-1.5); POTASSIUM 3.7 mmol/L (3.5-5.1)
[2021-05-17] MEDS: FUROSEMIDE 40MG VIAL IVP SCH (06:51)
[2021-05-17 06:57] LABS: APPEARANCE,URINE CLEAR (CLEAR); BILIRUBIN,URINE NEGATIVE (NEGATIVE); COLOR,URINE YELLOW (YELLOW); GLUCOSE, URINE (UA) 100 mg/dL (NEGATIVE); KETONES,URINE NEGATIVE (NEGATIVE); LEUKOCYTE ESTERASE ,URINE MODERATE (NEGATIVE); NITRATE,URINE NEGATIVE (NEGATIVE); OCCULT BLOOD,URINE NEGATIVE (NEGATIVE); PROTEIN,URINE NEGATIVE (NEGATIVE); UROBILINOGEN,URINE 0.2 mg/dL (0.2-1.0)
[2021-05-17] MEDS: INSULIN R PO SS1 SQ SCH ×4 (07:30→20:54)
[2021-05-17 07:56] LABS: BACTERIA,URINE Rare /HPF (None Seen); RBC,URINE 0-1 /HPF (0-1); SQUAMOUS EPITHELIAL CELL,UR Rare /HPF (0-2)
[2021-05-17] MEDS: HYDRALAZINE 25MG TABLET PO SCH ×3 (09:00→21:02)
[2021-05-17] MEDS ORDERED: AMLODIPINE 5 MG TAB PO SCH (09:00)
[2021-05-17] MEDS: ASPIRIN 81 MG EC TAB PO SCH (09:04)
[2021-05-17] MEDS: METOPROLOL SUCCINATE 50 MG TAB.SR.24H PO SCH (09:04)
[2021-05-17] MEDS: ENOXAPARIN SODIUM 40 MG/0.4 ML SYRINGE SQ SCH (09:05)
[2021-05-17 16:12] VITALS: BP 137/56
[2021-05-17] MEDS ORDERED: INSU100I40 SQ (16:32)
[2021-05-17] MEDS ORDERED: INSU200I4 SQ (16:33)
[2021-05-17] MEDS ORDERED: FLUT1BLS3 IH (16:36)
[2021-05-17 17:45] VITALS: BP 143/67
[2021-05-17] MEDS: FUROSEMIDE 20MG VIAL IVP SCH (17:50)
[2021-05-17 19:00] VITALS: BP 135/71
[2021-05-17] MEDS ORDERED: NITROGLYCERIN 0.4 MG SL TAB SL PRN (19:30)
[2021-05-17] MEDS ORDERED: ALBUTEROL 0.083% 2.5 MG/3 ML INH IH PRN (19:30)
[2021-05-17] MEDS ORDERED: NAPROXEN 250 MG TAB PO PRN (19:30)
[2021-05-17] MEDS ORDERED: NON-FORMULARY MEDICATION 1 EACH (Fluticasone/Umeclidin/Vilanter (Trelegy Ellipta 100-62.5- IH PRN (19:30)
[2021-05-17 20:00] VITALS: BP 140/68
[2021-05-17 21:00] VITALS: BP 152/81
[2021-05-17] MEDS ORDERED: ATORVASTATIN 40 MG TABLET PO SCH (21:00)
[2021-05-17] MEDS: FLUTICASONE IH SCH (21:00)
[2021-05-17] MEDS: UMECLIDIN IH SCH (21:00)
[2021-05-17] MEDS ORDERED: MONTELUKAST SODIUM 10 MG TAB PO SCH (21:00)
[2021-05-17] MEDS ORDERED: TRAZODONE HCL 50 MG TAB PO SCH (21:00)
[2021-05-17] MEDS: VILANTER IH SCH (21:00)
[2021-05-17] MEDS: [UNRECOGNIZED DRUG - OTHER] IH SCH (21:00)
[2021-05-17] MEDS: FLUTICASONE PROPIONATE 50MCG/SPRAY 16 GM BOTTLE NS SCH (21:02)
[2021-05-17] MEDS: BUSPIRONE HCL 5 MG TABLET PO SCH (21:04)
[2021-05-18] VITALS: BP 155/81
[2021-05-18] MEDS: NITROGLYCERIN 1GM OINT 1 INCH/1GM TD SCH ×3 (02:25→17:37)
[2021-05-18 04:12] VITALS: BP 130/72
[2021-05-18 04:19] LABS: HEMATOCRIT 33.1 % (36-48); MEAN CORPUSCULAR HEMOGLOBIN 28.5 pg (27.0-33.0); MEAN CORPUSCULAR HGB CONC 33.5 g/dL (32.0-36.0); MEAN CORPUSCULAR VOLUME 85.1 fL (79-99); RED BLOOD CELL COUNT(AUTO) 3.89 MIL/uL (4.00-5.50); RED CELL DISTRIBUTION WIDTH 13.2 % (11.0-15.5); WHITE BLOOD COUNT (AUTO) 6.6 K/uL (4.8-10.8)
[2021-05-18 04:23] LABS: CREATININE 1.4 mg/dL (0.5-1.5); POTASSIUM 3.7 mmol/L (3.5-5.1)
[2021-05-18] MEDS: IPRATROPIUM 0.5 MG/2.5 ML INH IH SCH ×2 (06:22→11:04)
[2021-05-18] MEDS: FUROSEMIDE 20MG VIAL IVP SCH ×2 (07:20→17:36)
[2021-05-18] MEDS: INSULIN R PO SS1 SQ SCH ×3 (07:21→17:43)
[2021-05-18 08:00] VITALS: BP 144/85
[2021-05-18] MEDS ORDERED: INSULIN DEGLUDEC 8 UNIT SQ SCH (09:00)
[2021-05-18] MEDS: FLUTICASONE IH SCH (09:00)
[2021-05-18] MEDS ORDERED: LORATADINE 10 MG TABLET PO SCH (09:00)
[2021-05-18] MEDS: [UNRECOGNIZED DRUG - OTHER] IH SCH (09:00)
[2021-05-18] MEDS ORDERED: AMLODIPINE 5 MG TAB PO SCH (09:00)
[2021-05-18] MEDS: VILANTER IH SCH (09:00)
[2021-05-18] MEDS ORDERED: METOPROLOL SUCCINATE 50 MG TAB.SR.24H PO SCH (09:00)
[2021-05-18] MEDS: UMECLIDIN IH SCH (09:00)
[2021-05-18] MEDS ORDERED: ASPIRIN 81 MG EC TAB PO SCH (09:00)
[2021-05-18] MEDS ORDERED: PANTOPRAZOLE 40 MG TAB DR PO SCH (09:00)
[2021-05-18] MEDS: METOPROLOL SUCCINATE 50 MG TAB.SR.24H PO SCH (10:02)
[2021-05-18] MEDS: BUSPIRONE HCL 5 MG TABLET PO SCH (10:02)
[2021-05-18] MEDS: ENOXAPARIN SODIUM 40 MG/0.4 ML SYRINGE SQ SCH (10:02)
[2021-05-18] MEDS: ASPIRIN 81 MG EC TAB PO SCH (10:02)
[2021-05-18] MEDS: HYDRALAZINE 25MG TABLET PO SCH ×2 (10:03→14:02)
[2021-05-18] MEDS: FLUTICASONE PROPIONATE 50MCG/SPRAY 16 GM BOTTLE NS SCH (10:04)
[2021-05-18 12:00] VITALS: BP 126/75
[2021-05-18 16:00] VITALS: BP 140/63
[2021-05-18] MEDS ORDERED: HYDR25 PO (17:52)
[2021-05-18] MEDS ORDERED: IPRA4AER IH (17:52)
[2021-05-18] MEDS ORDERED: FURO20TA4 PO (18:01)
== END 2021-05-18 18:46 | disposition home or self-care (01) | DRG 291 ==
LOC: EDH 17:11 → 4CH 18:08 → EDHIP 21:55 → 2DH 05-17 15:35
PROVIDERS: ADMIT Internal Medicine Critical Care Medicine; ATTEND Internal Medicine Critical Care Medicine
PROC: 4B02XSZ Measurement of Cardiac Pacemaker, External Approach (ICD-10-PCS; principal; 2021-05-16)
DX: I13.0 Hypertensive heart and chronic kidney disease with heart failure and stage 1 through stage 4 chronic kidney disease, or unspecified chronic kidney disease (principal); I50.33 Acute on chronic diastolic (congestive) heart failure; N18.30 Chronic kidney disease, stage 3 unspecified; E66.9 Obesity, unspecified; G47.33 Obstructive sleep apnea (adult) (pediatric); E11.22 Type 2 diabetes mellitus with diabetic chronic kidney disease; Z20.822 Contact with and (suspected) exposure to COVID-19; I49.5 Sick sinus syndrome; F32.A Depression, unspecified; J44.9 Chronic obstructive pulmonary disease, unspecified; Z68.31 Body mass index [BMI] 31.0-31.9, adult; Z88.5 Allergy status to narcotic agent; Z88.0 Allergy status to penicillin; Z88.8 Allergy status to other drugs, medicaments and biological substances; Z90.710 Acquired absence of both cervix and uterus; Z95.0 Presence of cardiac pacemaker; Z79.4 Long term (current) use of insulin; Z79.82 Long term (current) use of aspirin; Z79.899 Other long term (current) drug therapy; Z80.3 Family history of malignant neoplasm of breast; Z80.0 Family history of malignant neoplasm of digestive organs; Z82.49 Family history of ischemic heart disease and other diseases of the circulatory system
CPT/HCPCS: 36415; 36600; 71045; 71250; 74176; 78582; 80048; 80053; 81001; 82435; 82803; 82947; 82948; 83605; 83880; 84132; 84295; 85018; 85025; 85027; 85378; 87088; 87635; 87804; 93005; 94640; 94664; 94760; A9540; A9558; G0378; J0282; J1650; J1815; J1940; J7060